=== PATIENT | male | born 1965 ===

== ENCOUNTER 2024-10-05 06:42 | Day surgery (SDC) | payer OTHER ==
[2024-10-05] MEDS ORDERED: MIDAZOLAM HCL 2 MG/2 ML VIAL IV ONE (10:30)
[2024-10-05] MEDS ORDERED: DIPHENHYDRAMINE HCL 50 MG/ML VIAL 1ML IV ONE ×2 (10:30)
[2024-10-05] MEDS ORDERED: fentaNYL CITRATE 50 MCG/ML AMPUL IV PUSH ONE (10:30)
[2024-10-05] MEDS ORDERED: NALOXONE HCL 0.4 MG/ML AMPUL IV ONE (10:45)
== END 2024-10-05 12:30 | disposition home or self-care (01) ==
LOC: AMB-ENDOS 06:42
PROVIDERS: ATTEND Internal Medicine
DX: K63.5 Polyp of colon (principal); R19.4 Change in bowel habit; C20 Malignant neoplasm of rectum

== ENCOUNTER 2024-11-24 06:58 | Day surgery (SDC) | payer OTHER ==
[2024-11-24] MEDS ORDERED: CEFOXITIN SODIUM 2,000 MG VIAL IV ONE (14:30)
[2024-11-24] MEDS ORDERED: POVIDONE-IODINE 118 ML BOTT TOP ONE (14:30)
== END 2024-11-24 15:55 | disposition home or self-care (01) ==
LOC: AMB-ENDOS 06:58
PROVIDERS: ATTEND Internal Medicine
DX: D12.3 Benign neoplasm of transverse colon (principal); D12.2 Benign neoplasm of ascending colon; D12.5 Benign neoplasm of sigmoid colon; K63.5 Polyp of colon; R19.4 Change in bowel habit